=== PATIENT | female | born 1960 | race Caucasian/White ===

== ENCOUNTER 2016-12-22 14:32 | Day surgery (SDC) | payer BC ==
--- NOTE | ~2016-12-22 | OP ---
Record Of Operation [facility] [address] [place]. [address] NAME: YULISSA CRUZ : 60 STATUS : DIS IN PAT#: [id number] AGE: 56 ADM/REG DATE : 12/22/16 MR#: [id number] REPORT SERV DATE: 12/23/16 DICTATED BY: CEZAR NO DATE: 12/23/16 REPORT STATUS : Draft TRANSCRIBED BY: MODJeferson DATE: 12/23/16 DATE OF PROCEDURE: PREOPERATIVE DIAGNOSES: 1. Acute intractable left-sided S1 radiculopathy. 2. Large herniated nucleus pulposus with extrusion, left L5-S1. POSTOPERATIVE DIAGNOSES: 1. Acute intractable left-sided S1 radiculopathy. 2. Large herniated nucleus pulposus with extrusion, left L5-S1. PROCEDURE: 1. Microscopic and navigation-assisted surgery. 2. Left L5-S1 hemilaminotomy and microdiskectomy. SURGEON: Cezar No D.O. TYPING SECRETARY: Joseph Burgos. ANESTHESIA: General. ESTIMATED BLOOD LOSS: Less than 10 mL. INDICATIONS FOR SURGERY: A 56-year-old female who has had intermittent symptoms of some back pain and left hip and leg pain since 2011. She initially had diagnosed with disk herniation in 2011, has been treated conservatively for many years. She was doing well, but just recently had marked increase in her left hip and leg pain than those. On the morning of 12/22/2016, she felt a pop in her back, had immediate severe intractable left hip pain that was 10/10 and she was on the floor in the kitchen, could not get up. Her had to actually come and try to assist her up, but she was in such severe pain, she could hardly move. She was seen in our office and MRI was obtained on an urgent basis showing a large extruded herniation on the left at C5-6 with extrusion, actually migrated cephalad slightly behind the body of L5. The patient was in such intractable pain and such a large herniation, she was admitted for some pain control and taken to surgery for decompression. The risks, benefits, alternatives, expectations of the surgery have been explained to the patient and her and consent form has been signed. Because of the complexity of the surgery and the need to identify correct level of surgery intraoperatively as well as desire to carry out the safest and most precise dissection, I also feel intraoperative navigation is mandatory. After identifying the patient in the preop holding area, antibiotic prophylaxis was given. Neurophysiology monitoring leads were inserted. The patient was brought to the operative suite. General anesthetic including endotracheal intubation was administered. She was placed prone on a Shakeel spine frame. Bony prominences were carefully padded. Thoracolumbar spine scrubbed with Hibiclens solution. DuraPrep was painted. Sterile drapes Record Of Operation [facility] [address] [place]. [address] NAME: YULISSA CRUZ : 60 STATUS : DIS IN PAT#: [id number] AGE: 56 ADM/REG DATE : 12/22/16 MR#: [id number] REPORT SERV DATE: 12/23/16 DICTATED BY: CEZAR NO DATE: 12/23/16 REPORT STATUS : Draft TRANSCRIBED BY: NETO DATE: 12/23/[address] scan with O-arm obtained. CT information was used to register the navigational system. With navigational assistance, I identified the L5-S1. Just to the left of midline, a 2-cm skin incision was carried out. A blunt navigated probe was placed through the fascia muscle and docked over the interlaminar space with muscle dilators inserted followed by placement of a tubular retractor attached to an arm mount table. The microscope was sterilely draped and used throughout the remainder of the procedure. Again with navigational assistance, I identified the amount of inferior lamina of L5. I needed to remove it in order to reach the cephalad boundary and also just behind the body of L5, I removed 30% of the inferior lamina of L5, approximately 10% to 15% of the medial facet joint to create a window to allow retrieval of the disk herniation. The lateral ligamentum flavum was elevated and removed. The S1 nerve root was displaced laterally and was compressed against the wall of the pedicle. The nerve was very erythematous, very swollen, pale and as I gently retracted the nerve towards the midline, it was very irritable. As I gently retracted towards the midline, I was able to isolate the two large fragments of extruded disk material, which were removed without difficulty. After the decompression and diskectomy were completed, the wound was irrigated. I did notice that distal to the actual dura and kristen mater confluence and the S1 nerve root itself, there was a very small area where the dura had been slightly eroded and this appeared probably from the old herniation that had just scar to the nerve. The wound was irrigated and I placed a Tisseel around the area to try to prevent adhesions and scarring. The retractor was removed. No bleeding was noted. The fascial opening closed with a single interrupted #1 Vicryl suture. The subcutaneous tissue was closed with 2-0 Vicryl sutures, 2-0 vertical mattress, nylon suture used for skin closure. Sterile dressings were applied. The patient was then awakened, extubated, and taken to recovery room in satisfactory condition. Sponge, needle, and instrument counts were correct. No intraoperative complications noted. SH/MODL Cezar No D.O. / [id number] CC: Awilda Kasper M.D.
[2016-12-22] MEDS ORDERED: LEVOTHYROXIN112 MCG PO (17:37)
[2016-12-22] MEDS ORDERED: RESTASIS OPH (17:38)
[2016-12-22] MEDS ORDERED: FLONASE NAS (17:38)
[2016-12-22] MEDS ORDERED: D 5000 PO (17:39)
[2016-12-22] MEDS ORDERED: FISH OIL1200 MG PO (17:39)
[2016-12-22] MEDS ORDERED: ULTRAM50 PO (17:40)
[2016-12-22] MEDS ORDERED: HRT BASE XX (17:40)
[2016-12-22 17:45] LABS: ASCORBIC ACID (UR NOT ORDER) NEG (NEG); BILIRUBIN, URINE NEGATIVE (NEG); KETONE, URINE NEGATIVE (NEG); LEUKOCYTE ESTERASE(NOT OR NEG (NEG); WBC (NOT ORDERED) (RFLEX) 2 (0-5)
[2016-12-22 17:47] LABS: BASOPHILS 0.1 %; BASOPHILS ABSOLUTE 0.01 10/3/uL (0.0-0.16); EOSINOPHILS 0.1 %; EOSINOPHILS ABSOLUTE 0.01 10/3/uL (0.0-0.53); HEMATOCRIT 44.1 % (36.0-48.0); HEMOGLOBIN 15.2 g/dL (12.0-16.0); IMMATURE GRANULOCYTES 0.2 %; IMMATURE GRANULOCYTES ABSOLUTE 0.02 10/3/uL (0.0-0.11); LYMPHOCYTES 26.3 %; LYMPHOCYTES ABSOLUTE 2.36 10/3/uL (0.67-4.30); MEAN CORPUS HGB CONC 34.5 g/dL (32.0-36.0); MEAN CORPUSCULAR HEMOGLOB 32.1 pg (26.0-34.0); MEAN PLATELET VOLUME 10.1 fL (9.2-13.0); MONOCYTES 7.2 %; MONOCYTES ABSOLUTE 0.65 10/3/uL (0.21-1.20); NEUTROPHILS 66.1 %; NEUTROPHILS ABSOLUTE 5.92 10/3/uL (2.02-8.40); PLATELET COUNT 286 10/3/uL (150-400); RBC DISTRIBUTION WIDTH 12.4 % (12.0-16.0); RED CELL COUNT 4.74 10/6/uL (4.0-5.6)
[2016-12-22 17:53] LABS: MANUAL DIFF NO %
[2016-12-22 17:56] LABS: INTERNATIONAL NORMAL RATI 1.1 UNITS (-); PROTIME (NOT ORD) 13.6 SEC (12.0-14.5)
[2016-12-22 17:57] LABS: PARTIAL THROMBO TIME 24.1 SEC (22.5-37.2)
== END 2016-12-22 21:17 | disposition home or self-care (01) ==
LOC: SDC 14:32
PROVIDERS: Orthopaedic Surgery Orthopaedic Surgery of the Spine
PROC: 01NB0ZZ Release Lumbar Nerve, Open Approach (ICD-10-PCS; 2016-12-22)
PROC: 0SB20ZZ Excision of Lumbar Vertebral Disc, Open Approach (ICD-10-PCS; principal; 2016-12-22 17:15)
DX: M51.17 Intervertebral disc disorders with radiculopathy, lumbosacral region (principal); E03.9 Hypothyroidism, unspecified; K21.9 Gastro-esophageal reflux disease without esophagitis; N30.10 Interstitial cystitis (chronic) without hematuria; Z79.899 Other long term (current) drug therapy
CPT/HCPCS: 81001; 85025; 85610; 85730; 88304; 88311; 93005; A9270-GY; C1768; J0690; J2250; J2274; J2405; J2710; J3010